=== PATIENT | male | born 1990 | race Caucasian/White ===

== ENCOUNTER 2018-09-06 21:37 | Emergency (ER) | payer MEDICAID ==
[~2018-09-06] VITALS: Ht 170.2 cm; Wt 134.1 kg
[2018-09-06 21:47] VITALS: Ht 170.2 cm; Wt 134.1 kg
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
[2018-09-06] MEDS ORDERED: AMOX1TAB10 PO (22:57)
[2018-09-06] MEDS ORDERED: IBUP800T48 PO (22:57)
[2018-09-06 23:04] VITALS: BP 147/86; PULSE 80; RESP 18
== END 2018-09-06 23:04 | disposition home or self-care (01) ==
LOC: E/R 21:37
DX: S02.401A Maxillary fracture, unspecified side, initial encounter for closed fracture (principal); R51 Headache; W34.010A Accidental discharge of airgun, initial encounter; Y92.9 Unspecified place or not applicable; Z18.89 Other specified retained foreign body fragments
CPT/HCPCS: 70450; 70486; Z7502